=== PATIENT | female | born 1950 | race Caucasian/White ===

== ENCOUNTER 2023-10-21 07:27 | Day surgery (SDC) | payer BC, MEDICARE ==
[2023-10-21] MEDS: Lactated Ringers 1,000 ML IV SCH (07:42)
[2023-10-21] MEDS ORDERED: Ketamine 200 MG/20 ML MDV ONE (08:10)
[2023-10-21] MEDS ORDERED: Flumazenil 0.1 MG/ML 10 ML MDV ONE (08:10)
[2023-10-21] MEDS ORDERED: fentaNYL 50 MCG/ML SDV ONE (08:10)
[2023-10-21] MEDS ORDERED: Propofol 200 MG/20 ML SDV ONE ×2 (08:10)
[2023-10-21] MEDS ORDERED: Midazolam 1 MG/ML 2 ML SDV ONE (08:10)
== END 2023-10-21 09:30 | disposition home or self-care (01) ==
LOC: CC.SDS 07:27
PROVIDERS: ATTEND Family Medicine
DX: Z12.11 Encounter for screening for malignant neoplasm of colon (principal); D12.0 Benign neoplasm of cecum; D12.3 Benign neoplasm of transverse colon; D12.5 Benign neoplasm of sigmoid colon; K57.30 Diverticulosis of large intestine without perforation or abscess without bleeding; E03.9 Hypothyroidism, unspecified; E78.5 Hyperlipidemia, unspecified
CPT/HCPCS: 00811; 45385; 88305; 99100; J2250; J2704; J3010; J3490; J7120